=== PATIENT | female | born 1995 | race Caucasian/White ===

== ENCOUNTER 2025-01-05 18:27 | Inpatient (IN) | payer BC, OTHER ==
[2025-01-06] MEDS ORDERED: MAGNESIUM HYDROXIDE/AL HYDROX 30 ML CUP PO PRN (07:30)
[2025-01-06] MEDS ORDERED: ondansetron HCL 4 MG/2 ML VIAL IV PRN (07:30)
[2025-01-06] MEDS ORDERED: LACTATED RINGER'S 1,000 ML IV PRN (07:30)
[2025-01-06] MEDS ORDERED: OXYTOCIN 10 UNITS/ML VIAL IM SCH (07:30)
[2025-01-06] MEDS ORDERED: OXYTOCIN/0.9 % SODIUM CHLORIDE 30 UNITS/500 ML BAG IV SCH (07:30)
[2025-01-06] MEDS ORDERED: LACTATED RINGER'S 1,000 ML IV SCH (07:30)
[2025-01-06] MEDS ORDERED: CALCIUM CARBONATE 500 MG CHEW PO PRN (07:30)
[2025-01-06 08:09] LABS: CANNABINOID, URINE NEGATIVE (NEGATIVE); METHADONE, URINE NEGATIVE (NEGATIVE); PHENCYCLIDINE, URINE NEGATIVE (NEGATIVE)
[2025-01-06 08:18] LABS: AMNISURE ROM TEST NEGATIVE
[2025-01-06 08:21] LABS: AMPHETAMINES, URINE NEGATIVE (NEGATIVE); BARBITURATES, URINE NEGATIVE (NEGATIVE); BENZODIAZEPINE, URINE NEGATIVE (NEGATIVE); BUPRENORPHINE, URINE NEGATIVE (NEGATIVE); COCAINE, URINE NEGATIVE (NEGATIVE); ECSTASY, URINE NEGATIVE (NEGATIVE); FENTANYL, URINE NEGATIVE (NEGATIVE); OPIATES, URINE NEGATIVE (NEGATIVE); OXYCODONE, URINE NEGATIVE (NEGATIVE)
[2025-01-06 08:24] VITALS: BP 129/85
[2025-01-06 08:43] LABS: HEMATOCRIT 36.7 % (35.0-50.0); HEMOGLOBIN 12.3 g/dL (12.0-18.0); MCH 28.4 (27-36); MCHC 33.6 g/dl (30-36); MCV 84.7 fl (81-99); RBC 4.34 M/ul (4.3-5.7); RDW 13.9 (10.5-15.0)
[2025-01-06] MEDS ORDERED: miSOPROStoL 25 MCG TAB PV SCH (09:15)
[2025-01-06 09:47] LABS: ABO O; ANTIBODY SCREEN POSITIVE; RH NEGATIVE
[2025-01-06 10:11] LABS: ANTIBODY IDENTIFICATION ANTI-D
[2025-01-06] MEDS ORDERED: OXYTOCIN/0.9 % SODIUM CHLORIDE 500 ML IV SCH (18:15)
[2025-01-07] MEDS ORDERED: fentaNYL citrate 100 MCG/2 ML VIAL ONE (16:25)
[2025-01-07] MEDS ORDERED: ROPIVACAINE 0.2% 200 ML BAG ONE (16:25)
[2025-01-07] MEDS ORDERED: LACTATED RINGER'S 2,000 ML IV ONE (17:00)
[2025-01-07] MEDS ORDERED: LACTATED RINGER'S 500 ML IV PRN (17:00)
[2025-01-07] MEDS ORDERED: ePHEDrine sulfate 5 MG/ML SYRINGE IV PRN (17:00)
[2025-01-07] MEDS ORDERED: ROPIVACAINE 0.2% 200 ML BAG EPIDURAL SCH (17:00)
[2025-01-07 18:48] LABS: IS CROSSMATCH COMPATIBLE
[2025-01-07 21:00] LABS: ABO O; RH NEGATIVE
[2025-01-08] MEDS ORDERED: SENNOSIDES/DOCUSATE 1 EA TAB PO SCH (01:52)
[2025-01-08] MEDS ORDERED: IBUPROFEN 600 MG TAB PO SCH (02:00)
[2025-01-08] MEDS ORDERED: OXYTOCIN/0.9 % SODIUM CHLORIDE 500 ML IV SCH (02:00)
[2025-01-08] MEDS ORDERED: CALCIUM CARBONATE 500 MG CHEW PO PRN (02:00)
[2025-01-08] MEDS ORDERED: WITCH HAZEL/GLYCERIN 1 EA PAD TOP PRN (02:00)
[2025-01-08] MEDS ORDERED: BENZOCAINE 60 ML AEROSOL TOP PRN (02:00)
[2025-01-08] MEDS ORDERED: HYDROCORTISONE ACETATE 25 MG SUPP PR PRN (02:00)
[2025-01-08] MEDS ORDERED: HYDROCODONE/ACETA 5/325 TAB PO PRN (02:00)
[2025-01-08] MEDS ORDERED: MAGNESIUM HYDROXIDE/AL HYDROX 30 ML CUP PO PRN (02:00)
[2025-01-08] MEDS ORDERED: MAGNESIUM HYDROXIDE 30 ML UDC PO PRN (02:00)
[2025-01-08] MEDS ORDERED: ACETAMINOPHEN 500 MG TAB PO SCH (06:00)
[2025-01-09 06:24] LABS: ABO O; ANTIBODY SCREEN POSITIVE; FETAL HEMOGLOBIN SCREEN NEGATIVE; RH NEGATIVE; RHIG DOSE 1; RHIG STATUS CANDIDATE
[2025-01-09 06:36] LABS: RHIG VIAL 1 RG24K02-N
[2025-01-09] MEDS ORDERED: FLUOXETINE HCL 20 MG CAP PO SCH (09:00)
[2025-01-09 20:18] LABS: ANTIBODY IDENTIFICATION ANTI-D
== END 2025-01-09 10:56 | disposition home or self-care (01) | DRG 807 ==
LOC: FBC 01-06 07:07
PROVIDERS: Obstetrics & Gynecology; ADMIT Obstetrics & Gynecology; ATTEND Obstetrics & Gynecology
PROC: 10E0XZZ Delivery of Products of Conception, External Approach (ICD-10-PCS; principal; 2025-01-07)
PROC: 0KQM0ZZ Repair Perineum Muscle, Open Approach (ICD-10-PCS; 2025-01-07)
PROC: 3E0DXGC Introduction of Other Therapeutic Substance into Mouth and Pharynx, External Approach (ICD-10-PCS; 2025-01-07)
PROC: 3E033VJ Introduction of Other Hormone into Peripheral Vein, Percutaneous Approach (ICD-10-PCS; 2025-01-07)
PROC: 3E0334Z Introduction of Serum, Toxoid and Vaccine into Peripheral Vein, Percutaneous Approach (ICD-10-PCS; 2025-01-09)
DX: O36.63X0 Maternal care for excessive fetal growth, third trimester, not applicable or unspecified (principal); Z37.0 Single live birth; Z67.41 Type O blood, Rh negative; O36.1130 Maternal care for Anti-A sensitization, third trimester, not applicable or unspecified; O70.1 Second degree perineal laceration during delivery; O99.344 Other mental disorders complicating childbirth; F41.9 Anxiety disorder, unspecified; F32.A Depression, unspecified; Z3A.39 39 weeks gestation of pregnancy
CPT/HCPCS: 01960; 36415; 80307; 82803; 83030; 84112; 85027; 86850; 86870; 86900; 86901; 86922; A9270; J2790; J2795; J3010; J7121